=== PATIENT | female | born 1985 | race African-American/Black ===

== ENCOUNTER → 2022-01-07 | Outpatient (CLI) | payer OTHER ==
--- NOTE | 2022-01-07 12:53 | RAD ---
EXAMINATION: XR SHOULDER_RIGHT 2+ VIEWS CLINICAL HISTORY: PAIN, WEAKNESS, X 2 WEEKS, NO TRAUMA. TECHNIQUE: XR SHOULDER_RIGHT 2+ VIEWS Number of Images/Views: 3 COMPARISON: None FINDINGS: Glenohumeral joint alignment maintained. Acromioclavicular joint maintained. No acute fracture. Acrom iohumeral interval maintained. IMPRESSION: No acute osseous abnormality. Electronically signed by: Jonatan Villanueva DO (01/07/2022 12:50 PM) [id number]
== END ==
LOC: RAD 12:31
PROVIDERS: ATTEND Nurse Practitioner
DX: M25.511 Pain in right shoulder (principal)
CPT/HCPCS: 73030